=== PATIENT | male | born 2005 | race Caucasian/White ===

== ENCOUNTER → 2024-02-13 15:11 | Outpatient (REF) | payer BC, SELFPAY | LOC: HWRAD 15:11 | PROVIDERS: ATTENDING PHYSICIAN Nurse Practitioner Family | DX: R07.81 Pleurodynia (principal) | CPT/HCPCS: 71101 ==

== ENCOUNTER → 2024-04-02 09:04 | Outpatient (REF) | payer BC, SELFPAY | LOC: HWRAD 09:04 | PROVIDERS: ATTENDING PHYSICIAN Nurse Practitioner Family | DX: R22.2 Localized swelling, mass and lump, trunk (principal) | CPT/HCPCS: 76604 ==

== ENCOUNTER 2024-05-11 18:38 | Emergency (ER) | payer BC, SELFPAY ==
[2024-05-11 18:40] VITALS: BP 120/69; BMI 23.5
--- NOTE | 2024-05-11 18:55 | ED.GENMED ---
History of Present Illness
General
Chief Complaint: Fainting/Passed Out
Source: patient
Exam Limitations: none
Time Seen by Provider: 05/11/24 18:46
History of Present Illness
History of Present Illness:
See MDM
Past History
Past History
ED Past Medical History: None
ED Past Surgical History: None
Social History
Tobacco: Non-smoker
Alcohol: None
Phy Exam
Physical Exam
Physical Exam:
See MDM
Course
Orders/Labs/Results
Orders:
Orders
05/11/24 18:46
EKG [Electrocardiogram (*1)] Urgent
Reason for Study: Vertigo / Dizzy
EKG- Treatment ONCE
05/11/24 18:53
CT Chest With Iv Contrast Urgent
Comment:
Reason For Exam: eval mass the R ant chest, chest pain
Vital Signs
Initial and Last Documented VS:
Initial Vital Signs
Temp Pulse Resp BP Pulse Ox
97.7 F 65 11 120/69 100
05/11/24 18:40 05/11/24 18:40 05/11/24 18:40 05/11/24 18:40 05/11/24 18:40
Last Documented Vital Signs
Temp Pulse Resp BP Pulse Ox
97.7 F 76 20 113/62 98
05/11/24 18:40 05/11/24 19:45 05/11/24 19:45 05/11/24 19:00 05/11/24 19:45
MDM/Problems Addressed
Differential Diagnosis Includes:
HPI and MDM Narrative:
18-year-old male presenting from outpatient CT for evaluation when a rapid response was called. Patient apparently had a vagal response when the IV was being placed. Patient brought to the emergency department for evaluation. Blood sugar within
normal limits. Patient states he feels back to normal. Heart regular rate and rhythm. Patient calm and cooperative. I did give him the option of obtaining the CT chest from emergency department
Physical exam
General: Well appearing and non-toxic
HEENT: protecting airway
Neck: appears supple
CV: No evidence of cyanosis. Regular rate and rhythm
Resp: No accessory muscle use. Lungs clear
Abd: Non-distended
Extremities: No deformities
Neuro: alert
Psych: Normal affect
Skin: Intact
Problems Addressed including Acute and Chronic Conditions affecting care:
1. Vasovagal syncope
Acuity: acute
Prognosis: stable
Details: Appears to be related to IV placement. All symptoms resolved
Updates
Patient has been walking and ambulate without difficulty. No recurrent symptoms noted. CT without acute pathology
Differential Diagnosis (but not limited to): Vasovagal syncope, hypoglycemia
Testing considered: Blood work
Drug therapy (if applicable): OTC meds, please see d/c instruction regarding Rx drugs
Amount and/or Complexity of Data Reviewed
Clinical info obtained from: Patient
External data reviewed: N/A
Labs I independently reviewed (but not limited to): N/A
Radiology: The CT scan was personally and independently reviewed. In addition, official CT report reviewed.
Pulse Ox: not hypoxic
EKG independently reviewed: Sinus rhythm, normal axis, no STEMI
[employer] Developer: Sinus rhythm
Critical Care: N/A
Risk of Complication:
Social Determinants of health: Good social support
Discussed with other providers: N/A
Escalation of Care includes Admit/Obs: After being observed in the Emergency Department, pt stable for discharge.
Occasional wrong word or 'sound a like' substitutions may have occurred due to the inherent limitations of voice recognition software. Read the chart carefully and recognize, using context, where substitutions have occurred.
*Critical Care Note
Total Time (30-74mins, 75-104mins- exclusive of procedures): Not Applicable
ED Attending Note
-
Portions of this chart may have been created with voice recognition software.� Occasional wrong word or��sound alike� substitutions may have occurred due to the inherent limitations of voice recognition software.
Discharge Plan
Departure
Patient Disposition: Home (Routine Discharge)
Date of Disposition: 05/11/24
Time of Disposition: 21:04
Patient with high blood pressure during this ER visit?: No
Discharge Problem:
Chest pain
Prescriptions:
No Action
No Current Medications
0
Referrals:
UNKNOWN - PT DOES,NOT KNOW [Family Provider] -
Activity Restrictions/Additional Instructions:
Please return for any worsening symptoms.
You may return at any time if you have further concerns.
Please follow up with your doctor at the first available appointment, preferably this week.
Thank you for choosing [facility].
Interventions
Interventions:
*Risk Screen - Suicide Last Done: 05/11/24 18:40
*General Assessment Last Done: 05/11/24 18:40
*Neglect/Abuse Screening Last Done: 05/11/24 18:40
*ED COVID-19 Vaccine History Last Done: 05/11/24 18:40
ED- Cardiac Assessment Last Done: 05/11/24 19:11
ED- Neurological Assessment Last Done: 05/11/24 19:11
Discharge Date and Time
Print Language: CROATIAN
[2024-05-11 19:00] VITALS: BP 113/62
[2024-05-11 21:11] VITALS: BP 122/61
== END 2024-05-11 21:13 | disposition home or self-care (01) ==
LOC: EMR 18:38
PROVIDERS: EMERGENCY PHYSICIAN Student in an Organized Health Care Education/Training Program
DX: R07.89 Other chest pain (principal)
CPT/HCPCS: 99284; 71260; 82962; 93005; Q9967